=== PATIENT | female | born 1985 | race African-American/Black ===

== ENCOUNTER 2018-07-02 10:11 | Emergency (ER) | payer MEDICAID ==
[~2018-07-02] VITALS: Ht 167.6 cm; Wt 91.0 kg
[~2018-07-02 10:11] MED LIST: LORA-445 PO; LURA20TA PO; RISP2TAB35 PO
[2018-07-02 10:33] VITALS: BP 129/87
--- NOTE | 2018-07-02 10:36 | NUR ---
PT TO LOBBY
--- NOTE | 2018-07-02 10:53 | NUR ---
Pt to amb to 19 from lobby
[2018-07-02 10:57] LABS: HCG UR SG 1.014 (1.003-1.030)
--- NOTE | 2018-07-02 11:30 | NUR ---
Patient/Caregiver given discharge instructions and they have confirmed that they understand the instructions. Patient ambulatory with steady gait.
== END 2018-07-02 11:31 | disposition home or self-care (01) ==
LOC: ED 11:25
DX: Z32.02 Encounter for pregnancy test, result negative (principal)
CPT/HCPCS: 81025; 99283

== ENCOUNTER 2019-04-20 12:22 | Inpatient (IN) | payer MEDICAID ==
[~2019-04-20] VITALS: Ht 167.6 cm; Wt 96.5 kg
[~2019-04-20 12:22] MED LIST changes: +HYDR-3240 PO; +IBUP-1222 PO; +SENN-92 PO
[2019-04-20] MEDS ORDERED: DOCUSATE 100 MG CAPSULE PO PRN (12:30)
[2019-04-20] MEDS ORDERED: POLYETHYLENE GLYCOL 17 GM PACKET PO PRN (12:30)
[2019-04-20] MEDS ORDERED: BISACODYL 10 MG SUPP PR PRN (12:30)
[2019-04-20] MEDS ORDERED: ONDANSETRON ODT 4 MG PO PRN (12:30)
[2019-04-20] MEDS: PLEASE ENTER HEIGHT AND WEIGHT MC SCH ×2 (13:30→21:30)
[2019-04-20 14:01] VITALS: BP 122/79
[2019-04-20] MEDS: LORazepam 1MG TABLET PO PRN ×2 (14:57→22:30)
[2019-04-20 19:59] VITALS: BP 120/84
[2019-04-20] MEDS: HALOPERIDOL 5 MG TABLET PO PRN (22:30)
[2019-04-21 03:23] LABS: MICROSCOPIC AUTO
[2019-04-21 03:30] LABS: CULTURE INDICATED? YES
[2019-04-21 06:22] LABS: BASOPHILS # (AUTO) 0.03 x10^3/uL (0-0.1); BASOPHILS % (AUTO) 0 % (0-1); EOSINOPHILS # (AUTO) 0.12 x10^3/uL (0-0.4); EOSINOPHILS % (AUTO) 2 % (1-7); LYMPHOCYTES # (AUTO) 2.16 x10^3/uL (1-3.4); LYMPHOCYTES % (AUTO) 30 % (22-44); MD NO; MEAN CORPUSCULAR HEMOGLOBIN 28.3 pg (27.0-34.8); MEAN CORPUSCULAR HGB CONC 31.7 g/dL (32.4-35.8); MEAN CORPUSCULAR VOLUME 89.4 fL (80-100); MEAN PLATELET VOLUME 9.4 fL (7.4-10.4); MONOCYTES # (AUTO) 0.65 x10^3/uL (0.2-0.8); MONOCYTES % (AUTO) 9 % (2-9); NEUTROPHILS # (AUTO) 4.28 x10^3/uL (1.8-6.8); NEUTROPHILS % (AUTO) 59 % (42-75); PLATELET COUNT 237 x10^3/uL (130-400); RED BLOOD COUNT 4.25 x10^6/uL (3.82-5.3); RED CELL DISTRIBUTION WIDTH 15.6 % (9.6-15.2)
[2019-04-21 06:28] LABS: AMPHETAMINE SCREEN, URINE Negative (Negative); BARBITURATE SCREEN, URINE Negative (Negative); BENZODIAZEPINE SCREEN, URINE Negative (Negative); CANNABINOID SCREEN, URINE Negative (Negative); COCAINE SCREEN, URINE Negative (Negative); METHADONE SCREEN, URINE Negative (Negative); OPIATE SCREEN, URINE Negative (Negative)
[2019-04-21 06:29] LABS: ANION GAP 4 mmol/L (5-15); CALCIUM 8.4 mg/dL (8.5-10.1); CHLORIDE 111 mmol/L (98-107)
[2019-04-21 06:35] LABS: CHOL/HDL RATIO 2.9; CHOLESTEROL, TOTAL 166 mg/dL (140-239); CREATININE 0.82 mg/dL (0.55-1.02); FREE T4 (FREE THYROXINE) 1.19 ng/dL (0.76-1.46); HDL CHOL % 35 % (28-40); HDL CHOLESTEROL (DIRECT) 58 mg/dL (40-60); LDL CHOLESTEROL,CALCULATED 89 mg/dL (54-169); LDL/HDL RATIO 1.5 (0.5-3.0); TRIGLYCERIDES 96 mg/dL (50-200); VLDL CHOLESTEROL 19 mg/dL (0-25)
[2019-04-21 07:37] VITALS: BP 118/84
[2019-04-21] MEDS: LORazepam 1MG TABLET PO PRN (08:44)
[2019-04-21] MEDS: HALOPERIDOL 5 MG TABLET PO PRN (08:45)
[2019-04-21] MEDS ORDERED: PRAZ1CAP2 PO (11:26)
[2019-04-21] MEDS ORDERED: ARIP10TA33 PO (11:26)
[2019-04-21] MEDS ORDERED: BENZ2TAB6 PO (11:27)
[2019-04-21 19:52] VITALS: BP 124/85
[2019-04-21] MEDS: BENZTROPINE 1 MG TABLET PO SCH (20:13)
[2019-04-21] MEDS: PRAZOSIN 1 MG CAPSULE PO SCH (20:13)
[2019-04-22] MEDS: ACETAMINOPHEN 325 MG TABLET PO PRN ×3 (05:58→20:28)
[2019-04-22 07:17] VITALS: BP 126/84
[2019-04-22] MEDS: BENZTROPINE 1 MG TABLET PO SCH ×2 (08:19→20:28)
[2019-04-22] MEDS: ARIPIPRAZOLE 15 MG TABLET PO SCH (08:19)
[2019-04-22] MEDS ORDERED: ARIPIPRAZOLE 10 MG TABLET PO SCH (09:00)
[2019-04-22] MEDS: HALOPERIDOL 5 MG TABLET PO PRN ×3 (09:07→21:03)
[2019-04-22] MEDS: LORazepam 1MG TABLET PO PRN ×3 (09:07→21:03)
[2019-04-22 19:42] VITALS: BP 136/89
[2019-04-22] MEDS: PRAZOSIN 1 MG CAPSULE PO SCH (20:28)
[2019-04-23] MEDS: ACETAMINOPHEN 325 MG TABLET PO PRN ×2 (05:17→20:05)
[2019-04-23 07:21] VITALS: BP 126/87
[2019-04-23] MEDS: BENZTROPINE 1 MG TABLET PO SCH ×2 (08:11→20:05)
[2019-04-23] MEDS: ARIPIPRAZOLE 15 MG TABLET PO SCH (08:12)
[2019-04-23] MEDS: NICOTINE 21 MG/24 HR PATCH.TD24 TD SCH (08:14)
[2019-04-23] MEDS: LORazepam 1MG TABLET PO PRN ×3 (08:47→21:36)
[2019-04-23] MEDS: HALOPERIDOL 5 MG TABLET PO PRN ×3 (08:47→21:36)
[2019-04-23] MEDS: LURASIDONE 20 MG TABLET PO SCH (10:04)
[2019-04-23] MEDS ORDERED: metroNIDAZOLE 500 MG TABLET PO ONE (13:30)
[2019-04-23 19:08] VITALS: BP 158/83
[2019-04-23] MEDS: CEFDINIR 300 MG CAPSULE PO SCH (20:05)
[2019-04-23] MEDS: PRAZOSIN 1 MG CAPSULE PO SCH (20:05)
[2019-04-24 07:15] VITALS: BP 143/77
[2019-04-24] MEDS: LURASIDONE 20 MG TABLET PO SCH (07:36)
[2019-04-24] MEDS: ARIPIPRAZOLE 10 MG TABLET PO SCH (07:36)
[2019-04-24] MEDS: BENZTROPINE 1 MG TABLET PO SCH ×2 (07:36→19:56)
[2019-04-24] MEDS: NICOTINE 21 MG/24 HR PATCH.TD24 TD SCH (07:36)
[2019-04-24] MEDS: CEFDINIR 300 MG CAPSULE PO SCH ×2 (07:37→19:55)
[2019-04-24] MEDS: HALOPERIDOL 5 MG TABLET PO PRN ×3 (09:13→19:56)
[2019-04-24] MEDS: LORazepam 1MG TABLET PO PRN ×2 (09:13→19:56)
[2019-04-24] MEDS ORDERED: HALOPERIDOL 5 MG TABLET PO ONE (10:00)
[2019-04-24] MEDS ORDERED: LORazepam 1MG TABLET PO ONE (10:00)
[2019-04-24] MEDS ORDERED: HALOPERIDOL 2 MG/ML ORAL SOL PO ONE (10:00)
[2019-04-24] MEDS ORDERED: ARIP10TA33 PO (16:55)
[2019-04-24] MEDS ORDERED: BENZ1TAB61 PO (16:55)
[2019-04-24] MEDS ORDERED: NICO-487 TD (16:55)
[2019-04-24] MEDS ORDERED: LURA20TA PO (16:55)
[2019-04-24] MEDS ORDERED: PRAZ1CAP2 PO (16:55)
[2019-04-24] MEDS ORDERED: CEFD300C37 PO (16:55)
[2019-04-24 19:23] VITALS: BP 142/110
[2019-04-24] MEDS: PRAZOSIN 1 MG CAPSULE PO SCH (19:56)
[2019-04-24 20:32] VITALS: BP 148/91
[2019-04-25] MEDS: LORazepam 1MG TABLET PO PRN (04:10)
[2019-04-25 07:06] VITALS: BP 111/81
[2019-04-25] MEDS ORDERED: ARIPIPRAZOLE 5 MG TABLET ONE (08:48)
[2019-04-25] MEDS: ARIPIPRAZOLE 10 MG TABLET PO SCH (08:49)
[2019-04-25] MEDS: HALOPERIDOL 5 MG TABLET PO PRN (08:50)
[2019-04-25] MEDS: LURASIDONE 20 MG TABLET PO SCH (08:50)
[2019-04-25] MEDS: BENZTROPINE 1 MG TABLET PO SCH (08:50)
[2019-04-25] MEDS: NICOTINE 21 MG/24 HR PATCH.TD24 TD SCH (08:50)
[2019-04-25] MEDS: CEFDINIR 300 MG CAPSULE PO SCH (08:50)
== END 2019-04-25 10:20 | disposition home or self-care (01) | DRG 750 ==
LOC: 3E 12:37
PROVIDERS: ADMIT Psychiatry & Neurology Psychosomatic Medicine; ATTEND Psychiatry & Neurology Psychosomatic Medicine
DX: F25.0 Schizoaffective disorder, bipolar type (principal); Z78.1 Physical restraint status; E66.9 Obesity, unspecified; F29 Unspecified psychosis not due to a substance or known physiological condition; Z68.34 Body mass index [BMI] 34.0-34.9, adult
CPT/HCPCS: 36415; 71045; 80048; 80061; 80307; 81001; 82140; 82607; 84439; 84443; 84703; 85025; 87077; 87086; 87186; 93005

== ENCOUNTER 2019-08-17 11:34 | Inpatient (IN) | payer MEDICAID ==
[~2019-08-17] VITALS: Ht 167.6 cm; Wt 117.0 kg
[~2019-08-17 11:34] MED LIST changes: +ARIP10TA33 PO; +BENZ1TAB61 PO; +BENZ2TAB6 PO; +CEFD300C37 PO; +NICO-487 TD; +PRAZ1CAP2 PO
[2019-08-17] MEDS ORDERED: ONDANSETRON ODT 4 MG PO PRN (12:00)
[2019-08-17] MEDS ORDERED: ACETAMINOPHEN 325 MG TABLET PO PRN (12:00)
[2019-08-17] MEDS ORDERED: DOCUSATE 100 MG CAPSULE PO PRN (12:00)
[2019-08-17] MEDS ORDERED: POLYETHYLENE GLYCOL 17 GM PACKET PO PRN (12:00)
[2019-08-17] MEDS ORDERED: BISACODYL 10 MG SUPP PR PRN (12:00)
[2019-08-17] MEDS ORDERED: LITH300T3 PO (12:06)
[2019-08-17] MEDS ORDERED: PALI234D IM (12:14)
[2019-08-17 14:42] VITALS: BP 137/86
[2019-08-17] MEDS: LITHIUM CARBONATE 300 MG CAPSULE PO SCH ×2 (15:50→19:32)
[2019-08-17] MEDS ORDERED: NICOTINE 14MG/24 HR PATCH.TD24 TD SCH (16:00)
[2019-08-17 16:04] LABS: BASOPHILS # (AUTO) 0.04 x10^3/uL (0-0.1); BASOPHILS % (AUTO) 1 % (0-1); EOSINOPHILS # (AUTO) 0.11 x10^3/uL (0-0.4); EOSINOPHILS % (AUTO) 1 % (1-7); LYMPHOCYTES # (AUTO) 2.94 x10^3/uL (1-3.4); LYMPHOCYTES % (AUTO) 36 % (22-44); MD NO; MEAN CORPUSCULAR HEMOGLOBIN 30.1 pg (27.0-34.8); MEAN CORPUSCULAR HGB CONC 32.7 g/dL (32.4-35.8); MEAN CORPUSCULAR VOLUME 91.9 fL (80-100); MONOCYTES % (AUTO) 10 % (2-9); NEUTROPHILS # (AUTO) 4.26 x10^3/uL (1.8-6.8); NEUTROPHILS % (AUTO) 52 % (42-75); PLATELET COUNT 256 x10^3/uL (130-400); RED BLOOD COUNT 3.77 x10^6/uL (3.82-5.3); RED CELL DISTRIBUTION WIDTH 13.7 % (9.6-15.2)
[2019-08-17 16:07] LABS: ALANINE AMINOTRANSFERASE 41 U/L (12-78); ALBUMIN 3.3 g/dL (3.4-5.0); ANION GAP 3 mmol/L (5-15); CALCIUM 8.7 mg/dL (8.5-10.1); CHLORIDE 110 mmol/L (98-107); CREATININE 0.85 mg/dL (0.55-1.02)
[2019-08-17 16:18] LABS: ALKALINE PHOSPHATASE 78 U/L (45-117); BILIRUBIN,TOTAL 0.1 mg/dL (0.2-1.0); FREE T4 (FREE THYROXINE) 1.14 ng/dL (0.76-1.46); TOTAL PROTEIN 7.8 g/dL (6.4-8.2)
[2019-08-17] MEDS: LORazepam 1MG TABLET PO PRN ×2 (16:42→22:57)
[2019-08-17] MEDS: LURASIDONE 20 MG TABLET PO SCH (17:43)
[2019-08-17 19:09] VITALS: BP 179/113
[2019-08-17] MEDS: PRAZOSIN 1 MG CAPSULE PO SCH (19:31)
[2019-08-17] MEDS: BENZTROPINE 1 MG TABLET PO SCH (19:31)
[2019-08-17 19:42] LABS: MICROSCOPIC NOT IND
[2019-08-17 19:53] LABS: CULTURE INDICATED? NO
[2019-08-17] MEDS: HALOPERIDOL 5 MG TABLET PO PRN (22:48)
[2019-08-18 01:30] VITALS: BP 135/88
[2019-08-18] MEDS: LORazepam 1MG TABLET PO PRN ×2 (05:41→15:45)
[2019-08-18 07:50] VITALS: BP 148/60
[2019-08-18] MEDS: ARIPIPRAZOLE 10 MG TABLET PO SCH (08:53)
[2019-08-18] MEDS: BENZTROPINE 1 MG TABLET PO SCH ×2 (08:54→20:32)
[2019-08-18] MEDS: LITHIUM CARBONATE 300 MG CAPSULE PO SCH ×3 (08:54→20:32)
[2019-08-18] MEDS: HALOPERIDOL 5 MG TABLET PO PRN ×2 (09:52→15:45)
[2019-08-18] MEDS ORDERED: NICOTINE 21 MG/24 HR PATCH.TD24 TD ONE (14:00)
[2019-08-18] MEDS: LURASIDONE 20 MG TABLET PO SCH (18:28)
[2019-08-18 19:15] VITALS: BP 120/80
[2019-08-18] MEDS: PRAZOSIN 1 MG CAPSULE PO SCH (20:32)
[2019-08-19] MEDS: HALOPERIDOL 5 MG TABLET PO PRN ×3 (01:01→20:30)
[2019-08-19] MEDS: LORazepam 1MG TABLET PO PRN ×3 (01:01→22:58)
[2019-08-19] MEDS ORDERED: ZIPRASIDONE 20 MG INJ IM ONE ×2 (04:04→04:30)
[2019-08-19 07:31] VITALS: BP 141/89
[2019-08-19] MEDS: ARIPIPRAZOLE 10 MG TABLET PO SCH (08:37)
[2019-08-19] MEDS: LITHIUM CARBONATE 300 MG CAPSULE PO SCH ×3 (08:38→20:28)
[2019-08-19] MEDS: BENZTROPINE 1 MG TABLET PO SCH ×2 (08:38→20:28)
[2019-08-19] MEDS ORDERED: LORazepam 1MG TABLET PO ONE (10:30)
[2019-08-19] MEDS ORDERED: HALOPERIDOL 5 MG TABLET PO ONE (10:30)
[2019-08-19] MEDS: DIPHENHYDRAMINE 50 MG CAPSULE PO PRN ×2 (10:51→20:29)
[2019-08-19] MEDS: LURASIDONE 20 MG TABLET PO SCH (18:00)
[2019-08-19] MEDS: PRAZOSIN 1 MG CAPSULE PO SCH (20:29)
[2019-08-19] MEDS ORDERED: LORazepam 0.5MG TABLET ONE (23:25)
[2019-08-19] MEDS ORDERED: LORazepam 0.5MG TABLET PO ONE (23:30)
[2019-08-20] MEDS: HALOPERIDOL 5 MG TABLET PO PRN (02:12)
[2019-08-20 07:21] VITALS: BP 125/84
[2019-08-23] MEDS ORDERED: PALIPERIDONE PALMITATE 234 MG/1.5 ML IM ONE (09:00)
== END 2019-08-20 08:20 | disposition home or self-care (01) | DRG 750 ==
LOC: 3E 13:55
PROVIDERS: ADMIT Psychiatry & Neurology Psychosomatic Medicine; ATTEND Psychiatry & Neurology Psychosomatic Medicine
DX: F25.0 Schizoaffective disorder, bipolar type (principal); Z68.41 Body mass index [BMI] 40.0-44.9, adult; F23 Brief psychotic disorder; F15.10 Other stimulant abuse, uncomplicated; F32.9 Major depressive disorder, single episode, unspecified; F41.9 Anxiety disorder, unspecified; F10.10 Alcohol abuse, uncomplicated; F17.200 Nicotine dependence, unspecified, uncomplicated; E66.9 Obesity, unspecified; Z91.19 Patient's noncompliance with other medical treatment and regimen; Z79.899 Other long term (current) drug therapy; Z83.3 Family history of diabetes mellitus; Z83.6 Family history of other diseases of the respiratory system
CPT/HCPCS: 36415; 80053; 81003; 82140; 84439; 84443; 85025; 93005; J3486

== ENCOUNTER 2020-01-28 07:52 | Emergency (ER) | payer MEDICAID ==
[~2020-01-28] VITALS: Ht 167.6 cm; Wt 117.0 kg
[~2020-01-28 07:52] MED LIST changes: +LITH300T3 PO; +PALI234D IM
[2020-01-28 07:54] VITALS: BP 100/65
[2020-01-28] MEDS ORDERED: NEOSPORIN OINT. PKT 1 PACKET ONE (08:39)
--- NOTE | 2020-01-28 09:23 | NUR ---
Patient given discharge instructions and they have confirmed that they understand the instructions. Patient ambulatory with steady gait.
== END 2020-01-28 09:24 | disposition home or self-care (01) ==
LOC: ED 08:12
DX: S93.402A Sprain of unspecified ligament of left ankle, initial encounter (principal); S90.822A Blister (nonthermal), left foot, initial encounter; X50.1XXA Overexertion from prolonged static or awkward postures, initial encounter; Y93.89 Activity, other specified; Y92.488 Other paved roadways as the place of occurrence of the external cause; Y99.8 Other external cause status
CPT/HCPCS: 99283

== ENCOUNTER 2020-06-10 21:43 | Emergency (ER) | payer MEDICAID ==
[~2020-06-10] VITALS: Ht 167.6 cm; Wt 100.0 kg
[~2020-06-10 21:43] MED LIST changes: -NICO-487 TD; +NICO-587 TD
[2020-06-10] MEDS ORDERED: ZIPRASIDONE 20 MG INJ IM ONE ×2 (21:54→22:00)
[2020-06-10 22:16] LABS: BASOPHILS % (AUTO) 1 % (0-1); EOSINOPHILS % (AUTO) 0 % (1-7); LYMPHOCYTES % (AUTO) 29 % (22-44); MEAN CORPUSCULAR HEMOGLOBIN 28.9 pg (27.0-34.8); MEAN CORPUSCULAR HGB CONC 33.5 g/dL (32.4-35.8); MEAN PLATELET VOLUME 8.8 fL (7.4-10.4); MONOCYTES % (AUTO) 8 % (2-9); NEUTROPHILS % (AUTO) 63 % (42-75); PLATELET COUNT 343 x10^3/uL (130-400); RED BLOOD COUNT 3.92 x10^6/uL (3.82-5.3); RED CELL DISTRIBUTION WIDTH 13.8 % (9.6-15.2)
[2020-06-10 22:19] LABS: MD NO
--- NOTE | 2020-06-10 22:19 | NUR ---
BIBA AND [employer], LEGAL HOLD INITIATED BY RPArianna. PER REPORT [employer] RECIEVED SEVEN 911 CALLS ABOUT A NAKED LADY RUNNING AROUND THE STREETS NEAR PTS HOME. POLICE FOUND PT NAKED IN A LARGE TRASH CAN. A NEIGHBOR THROWING CLOTHES AWAY WAS PASSING BY AND DONATED BAG OF CLOTHING TO PT TO WEAR. PER EMS PT HAS HX OF SCHIZOPRENIA. PT IS DENYING HEARING VOICES OR SEEING THINGS AND IS ALSO DENYING SI THOUGHTS. UPON ARRIVAL TO HOSPITAL PT REFUSES TO SIT OR LAY DOWN IN GURNEY OR WEAR HOSPITAL GOWN. PT HAS STEADY AMBULATION AND IS REDIRECTABLE FOR A FEW SECONDS BEFORE PT LOOSES FOCUS AND BECOMES HYPERFOCUSED ON OTHER THINGS SUCH THE TV OR A STAFF MEMBER IN THE ROOM AND WILL GET OUT OF BED AND WALK AROUND ROOM GRABBING THE CURTIAN TO COVER HERSELF. PT WILL LET RN DRESS HER WITH GOWN BUT THEN IMMEDIATELY REMOVES GOWN. PT STATES SHE IS AND HAS 7 CHILDREN BUT IS UNSURE HOW FAR ALONG SHE IS AND THAT HER IS IN [facility]. PT HAS WIDE, TRACKING EYES. ADMITS TO USING METH AND HAS HOARSE SOUNDING VOICE AND CLEAR SPEECH. PT GIVEN 20 MG GEODON WITH NO CHANGE IN BEHAVIOR. SECURITY CALLED AND PT PLACED IN 4 POINT LEATHER RESTRAINTS. GAL COBIAN AWARE. SITTER AT BEDSIDE.
[2020-06-10 22:28] LABS: ALBUMIN 3.4 g/dL (3.4-5.0); ANION GAP 9 mmol/L (5-15); CALCIUM 8.5 mg/dL (8.5-10.1); CHLORIDE 105 mmol/L (98-107); SALICYLATE LEVEL 2.5 mg/dL (2.8-20.0)
[2020-06-10 22:39] LABS: ALANINE AMINOTRANSFERASE 38 U/L (12-78); ALKALINE PHOSPHATASE 88 U/L (45-117); BILIRUBIN,TOTAL 0.5 mg/dL (0.2-1.0); CREATININE 0.86 mg/dL (0.55-1.02); TOTAL PROTEIN 7.5 g/dL (6.4-8.2)
--- NOTE | 2020-06-10 23:15 | NUR ---
PT GOES BY NICKNAME OF "STAR". PT IS ORIENTED TO SELF AND PLACE. KNOWS SHE WAS BROUGHT IN BY POLICE AND IS AT A HOSPITAL.
[2020-06-11] MEDS ORDERED: DIPHENHYDRAMINE 50 MG/ML, 1ML ONE (00:11)
[2020-06-11] MEDS ORDERED: LORazepam 2 MG/ML, 1ML ONE (00:12)
--- NOTE | 2020-06-11 00:22 | NUR ---
PT AWAKE AND YELLING AT STAFF. PT NOW HAS RUDE DEMEANER AND IS AGGITATED. ERP DR DESAI AWARE. PRN ORDERS PLACED
--- NOTE | 2020-06-11 00:22 | NUR ---
UA SENT TO LAB
--- NOTE | 2020-06-11 00:29 | NUR ---
pt yelling "I have to s" however is refusing bed stanley and other alternatives. pt yelling in room
[2020-06-11] MEDS ORDERED: DIPHENHYDRAMINE 50 MG/ML, 1ML IM ONE (00:30)
[2020-06-11] MEDS ORDERED: LORazepam 2 MG/ML, 1ML IM ONE ×2 (00:30→03:30)
[2020-06-11 00:42] LABS: MICROSCOPIC AUTO
--- NOTE | 2020-06-11 00:46 | NUR ---
Break RN: patient lying in gurney with eyes closed. Patient remains in hard restraints for safety. Room secured, belongings locked in cabinet, sitter outside.
[2020-06-11 00:52] LABS: AMPHETAMINE SCREEN, URINE Positive (Negative); BARBITURATE SCREEN, URINE Negative (Negative); BENZODIAZEPINE SCREEN, URINE Positive (Negative); CANNABINOID SCREEN, URINE Negative (Negative); COCAINE SCREEN, URINE Negative (Negative); METHADONE SCREEN, URINE Negative (Negative); OPIATE SCREEN, URINE Negative (Negative)
--- NOTE | 2020-06-11 00:56 | NUR ---
Break RN: patient in [facility], yelling at staff. Room secured, belongings in locked cabinet, sitter outside. Restraints remain in place for patient/staff safety.
--- NOTE | 2020-06-11 01:46 | NUR ---
Note larsone in EDM - 06/11/20 at 0149 by [email or web address] REPORT GIVEN TO TUNG LAW. PT MOVED TO ROOM 01. IN 4-POINT LOCKED RESTRAINTS. + CMS. PT AWAKE AND YELLING, SLIGHTLY DROWSY. RESP EVEN AND UNLABORED. ASKING FOR FOOD. GIVEN CRACKERS AND WATER.
--- NOTE | 2020-06-11 01:49 | NUR ---
REPORT GIVEN TO TUNG LAW. PT MOVED TO ROOM 01. IN 4-POINT LOCKED RESTRAINTS. + CMS. PT AWAKE AND YELLING, SLIGHTLY DROWSY. RESP EVEN AND UNLABORED. ASKING FOR FOOD. GIVEN CRACKERS AND WATER.
--- NOTE | 2020-06-11 01:50 | NUR ---
Report from ANI Quigley. Assumed care. Pt in 4pt restraints, sitter at bedside. Pt sleeping. Equal chest rise and fall noted.
--- NOTE | 2020-06-11 02:09 | NUR ---
Restraints removed. Pt cooperating well. Pt ambulated to bathroom. Pt back in bed, resting eyes closed. Equal chest rise and fall, breathing non-labored.
--- NOTE | 2020-06-11 02:20 | NUR ---
Dimmed lights and provided crackers per pt. request.
--- NOTE | 2020-06-11 02:25 | NUR ---
Provided pt sandwich per pt. request. Pt calm and cooperative.
--- NOTE | 2020-06-11 02:36 | NUR ---
Packet faxed to Christi JAMISON, [facility], [facility], [facility].
--- NOTE | 2020-06-11 02:45 | NUR ---
Report to ANI SNOW.
--- NOTE | 2020-06-11 02:50 | NUR ---
Report received from ANI Amador. This RN to assume care. Patient resting in gurney, eyes closed, respirations even and unlabored. Patient just finished eating a sandwich. Room secure, belongings locked in cabinet, sitter outside.
--- NOTE | 2020-06-11 03:15 | NUR ---
Patient resting in gurney, eyes closed, respirations even and unlabored. Room secure, belongings locked in cabinet, sitter outside.
--- NOTE | 2020-06-11 03:17 | NUR ---
Christi denies due to insurance.
[2020-06-11] MEDS ORDERED: ZIPRASIDONE 20 MG INJ IM ONE (03:30)
--- NOTE | 2020-06-11 03:30 | NUR ---
Requested PRN meds for agitation due to patient's previous behavior.
--- NOTE | 2020-06-11 04:35 | NUR ---
Patient resting in gurney, eyes closed, respirations even and unlabored. Room secure, belongings locked in cabinet, sitter outside.
--- NOTE | 2020-06-11 05:20 | NUR ---
Patient resting in gurney, eyes closed, respirations even and unlabored. Room secure, belongings locked in cabinet, sitter outside.
--- NOTE | 2020-06-11 06:09 | NUR ---
Meal tray ordered.
--- NOTE | 2020-06-11 06:11 | NUR ---
Patient resting in gurney, eyes closed, respirations even and unlabored. Room secure, belongings locked in cabinet, sitter outside.
--- NOTE | 2020-06-11 06:57 | NUR ---
RECEIVED REPORT FROM NELY. PT CALMLY SLEEPING ON GURNEY, NAD WITH EQUAL CHEST RISE/FALL, NO NEEDS AT THIS TIME, PT REMAINS IN SAFE ENVIRONMENT, SITTER IN FULL VIEW.
--- NOTE | 2020-06-11 06:58 | NUR ---
Report to ANI Blue. Patient care transferred.
--- NOTE | 2020-06-11 08:01 | NUR ---
PT LAYING ON GURNEY AWAKE & CALM, NAD, NO NEEDS AT THIS TIME, PT REMAINS IN SAFE ENVIRONMENT, SITTER IN FULL VIEW.
[2020-06-11] MEDS ORDERED: DIPHENHYDRAMINE 25 MG CAPSULE ONE (08:27)
[2020-06-11] MEDS ORDERED: LORazepam 1MG TABLET ONE (08:27)
[2020-06-11] MEDS ORDERED: DIPHENHYDRAMINE 50 MG CAPSULE ONE (08:34)
[2020-06-11 08:45] VITALS: BP 124/76
[2020-06-11] MEDS ORDERED: LORazepam 1MG TABLET PO ONE (09:00)
[2020-06-11] MEDS ORDERED: DIPHENHYDRAMINE 50 MG CAPSULE PO ONE (09:00)
--- NOTE | 2020-06-11 09:02 | NUR ---
PT BECAME RESTLESS, KEEPS COMING OUT OF ROOM TRYING TO WANDER NEEDING FREQUENT REDIRECTION BUT COOPERATIVE- ERP AWARE, PT MEDICATED PER EMAR, NAD, COMFORT MEASURES PROVIDED INCL BREAKFAST TRAY GIVEN, PT REMAINS IN SAFE ENVIRONMENT, SITTER IN FULL VIEW.
--- NOTE | 2020-06-11 10:00 | NUR ---
PT REMAINS RESTLESS DESPITE MEDICATION, KEEPS COMING OUT OF ROOM TRYING TO WANDER NEEDING FREQUENT REDIRECTION, MOSTLY COOPERATIVE, NAD, COMFORT MEASURES PROVIDED, PT REMAINS IN SAFE ENVIRONMENT, SITTER IN FULL VIEW.
--- NOTE | 2020-06-11 11:03 | NUR ---
PT RESTLESS AT TIMES DESPITE MEDICATION, KEEPS COMING OUT OF ROOM TRYING TO WANDER NEEDING FREQUENT REDIRECTION BUT COOPERATIVE, NAD, COMFORT MEASURES PROVIDED, PT REMAINS IN SAFE ENVIRONMENT, SITTER IN FULL VIEW. Addendum: 06/11/20 at 1112 by YING PT RESTLESS AT TIMES DESPITE MEDICATION, KEEPS COMING OUT OF ROOM TRYING TO WANDER NEEDING FREQUENT REDIRECTION BUT COOPERATIVE, NAD, COMFORT MEASURES PROVIDED, PT REMAINS IN SAFE ENVIRONMENT, SITTER IN FULL VIEW. AWAITING [facility] TRANSPORT TO [facility].
--- NOTE | 2020-06-11 11:26 | NUR ---
EMS given pt discharge instructions and they have confirmed that they understand the instructions. Patient ambulatory with steady gait.
== END 2020-06-11 11:28 ==
LOC: ED 22:27
DX: F15.150 Other stimulant abuse with stimulant-induced psychotic disorder with delusions (principal); F22 Delusional disorders; Z91.14 Patient's other noncompliance with medication regimen; R00.0 Tachycardia, unspecified; Z72.9 Problem related to lifestyle, unspecified; F17.210 Nicotine dependence, cigarettes, uncomplicated
CPT/HCPCS: 36415; 80053; 80299; 80307; 80320; 80329; 81001; 84443; 84703; 85025; 96372; 99285; 99406; J1200; J2060; J3486; G0480

== ENCOUNTER 2020-08-08 20:44 | Emergency (ER) | payer MEDICAID ==
[~2020-08-08] VITALS: Ht 162.6 cm; Wt 80.0 kg
[~2020-08-08 20:44] MED LIST changes: +HYDR-1067 PO; -HYDR-3240 PO
--- NOTE | 2020-08-08 20:59 | NUR ---
PT BIB EMS AFTER BEING FOUND BY [employer] ACTING ERRATIC AND UNABLE TO MAINTAIN COHERENT THOUGHT PROCESS, RUSHED SPEECH NOTED, PT IS EXTREMELY RESTLESS, SWINGING ARMS AND LEGS NON STOP, UNABLE TO HOLD STILL. PT STATING "I NEED MILK AND TO GET UP AND I WANT A QUESTION TO YOU.. CAN YOU ANSWER?" "I NEED TO PEE WHEN I RELAX BUT YOU NEED MY ADDRESS FIRST." PT ADMITS TO USING METH TODAY. GIVEN 5 MG IM VERSED TEZ. WCTM. PLACED ON [facility], ROOM SECURED, SITTER IN LINE OF SIGHT.
[2020-08-08] MEDS: HALOPERIDOL 5 MG/ML IV ONE ×2 (21:00→21:14)
[2020-08-08] MEDS ORDERED: HALOPERIDOL 5 MG/ML ONE (21:10)
--- NOTE | 2020-08-08 21:24 | NUR ---
PT PLACED ON ECG MONITORING AT THIS TIME. PROVIDED WATER FOR COMFORT, SITTER IN LINE OF SIGHT, PT MEDICATED PER AUG FOR AGGITATION, NAD, WCTM.
[2020-08-08] MEDS ORDERED: HALOPERIDOL 5 MG/ML IM ONE (21:30)
--- NOTE | 2020-08-08 22:17 | NUR ---
ASSUMED CARE OF PT FROM ANI NEWBERRY. PT RESTING IN GURNEY RESTRAINED, MONITORING IN PLACE, ZITA AT THIS TIME, WCEUGENIO.
--- NOTE | 2020-08-08 22:17 | NUR ---
bedside report to Renita LWA, pt care transferred at this time. pt room changed from 40 to 3 at this time, pt awakened and irritated upon transfer of rooms, monitoring in place, pt provided water, sitter in line of sight.
[2020-08-08] MEDS ORDERED: LORazepam 1MG TABLET ONE (23:14)
--- NOTE | 2020-08-08 23:29 | NUR ---
SECURITY AT BEDSIDE TO UNRESTRAIN ONE LIMB. PT PROVIDED FOOD AND WATER, MEDICATED PER AMBROSIO CARRANZA. SITTER AT BEDSIDE FOR SAFETY, ROOM SECURED.
[2020-08-08] MEDS ORDERED: LORazepam 1MG TABLET PO ONE (23:30)
--- NOTE | 2020-08-08 23:48 | NUR ---
SECURITY AT BEDSIDE TO TAKE OFF RESTRAINT FROM LEFT LOWER LIMB. PT STILL HAS RIGHT LOWER EXTREMITY AND LEFT UPPER EXTREMITY RESTRAINED DUE TO PT BEING AGITATED WHEN AWAKE. PT SLEEPING INTERMITTENTLY. SITTER AT BEDSIDE WITH DIRECT LINE OF SIGHT. [facility].
--- NOTE | 2020-08-09 00:15 | NUR ---
SECURITY AT BEDSIDE TO TAKE OFF ALL RESTRAINTS. PT CALM AND COOPERATIVE AT THIS TIME. SITTER AT DOORWAY OF ROOM FOR SAFETY. PT PROVIDED FOOD AND WATER AND WARM BLANKET. PT EDUCATED ON IMPORTANCE OF CALLING BEFORE TRYING TO GET OUT OF BED. PT RESTING IN GURNEY WITH EYES CLOSED, MONITORING IN PLACE, PER PT NO OTHER NEEDS, NADN AT THIS TIME, WCTM.
--- NOTE | 2020-08-09 01:27 | NUR ---
PT PROVIDED FOOD AND WATER AT THIS TIME. SITTER AT BEDSIDE, ZITA AT THIS TIME, AMBROSIO.
--- NOTE | 2020-08-09 02:15 | NUR ---
BEDSIDE REPORT FROM PERFECTO LAW, PT CARE TRANSFERRED AT THIS TIME. PT NAD, RESTING ON GURNEY, EYES CLOSED, EVEN AND UNLABORED RESPIRATIONS. WCTM.
--- NOTE | 2020-08-09 03:09 | NUR ---
PT NAD, RESTING ON GURNEY, EYES CLOSED, EVEN AND UNLABORED RESPIRATIONS, BED IN LOWEST, RAILS ENGAGED, CALL LIGHT ON LAP. WCTM.
--- NOTE | 2020-08-09 04:37 | NUR ---
PT NAD, RESTING ON GURNEY, EYES CLOSED, EVEN AND UNLABORED RESPIRATIONS, BED IN LOWEST, RAILS ENGAGED, CALL LIGHT ON LAP. WCTM.
[2020-08-09 05:30] VITALS: BP 118/64
--- NOTE | 2020-08-09 05:30 | NUR ---
Patient given discharge instructions and they have confirmed that they understand the instructions. Patient ambulatory with steady gait. NAD, DENIES ADDITIONAL QUESTIONS OR NEEDS, PROVIDED TAXI VOUCHER,SNACKS AND NEW PANTS. NO PERSONAL BELONGINGS LEFT IN ROOM AFTER DC.
== END 2020-08-09 05:32 | disposition home or self-care (01) ==
LOC: ED 21:12
DX: G92 Toxic encephalopathy (principal); F15.159 Other stimulant abuse with stimulant-induced psychotic disorder, unspecified; R45.1 Restlessness and agitation
CPT/HCPCS: 96372; 99285; J1630

== ENCOUNTER 2020-10-02 14:15 | Emergency (ER) | payer MEDICAID ==
[~2020-10-02] VITALS: Ht 170.2 cm; Wt 90.0 kg
[~2020-10-02 14:15] MED LIST changes: -HYDR-1067 PO; +HYDR-2214 PO
[2020-10-02 14:19] VITALS: BP 130/81
--- NOTE | 2020-10-02 14:32 | NUR ---
BIB BY FRANCES FROM BUS STOP PATIENT FLAGGING DOWN TRAFFIC ASKING FOR TAMPON. WITH ASSESSMENT PATIENT HYPERVERBAL/ANXIOUS. ADMITS TO METH USE TODAY RECENTLY DISCHARGED FROM [facility] FOR SCHIZOPHRENIA AFTER TRIAGE-PATIENT PROVIDED WITH FEMININE PRODUCTS- SHE WALKED TO RESTROOM AND UTILIZED PRODUCTS APPROPRIATELY
--- NOTE | 2020-10-02 14:40 | NUR ---
PATIENT ASKING TO LEAVE. ERP NOT YET TO EVAL. PATIENT INSISTENT ON LEAVING AND COHERENT TO CONSEQUENCES OF LEAVING PRE MD EVAL. PATIENT WOULD NOT WAIT FOR D/C PAPERWORK BEFORE SHE WALKED OUT
== END 2020-10-02 14:43 | disposition home or self-care (01) ==
LOC: ED 14:40
DX: Z53.21 Procedure and treatment not carried out due to patient leaving prior to being seen by health care provider (principal)

== ENCOUNTER 2020-10-02 19:07 | Emergency (ER) | payer MEDICAID ==
[~2020-10-02] VITALS: Ht 162.6 cm; Wt 100.0 kg
[2020-10-02 19:15] VITALS: BP 168/90
--- NOTE | 2020-10-02 19:26 | NUR ---
PT EXTREMELY HYPER AND WON'T STAY IN ROOM. CONTINUES TO COME OUT AND HARASS PTS IN ADJACENT ROOMS. PT PROVIDED RESTROOM AND ASSITANCE, BUT WOULD NOT COMPLY AND STAY IN ROOM OR ALLOW TREATMENT. PT STOOD UP AND STATED SHE IS LEAVING AND RAN OUT OF THE HOSPITAL. PT IS NOT ON A HOLD OF ANY KIND NOR HAS SHE BEEN SEEN BY STAFF. PT BROUGHT IN BY EMS, AND PER RECORDS, PT WAS SEEN HERE FOR SAME THING AND ALSO RAN OUT 2 HOURS AGO, IN SAME SITUATION. DOOR FITTER AWARE AND SO IS .
== END 2020-10-02 19:29 | disposition left against medical advice (07) ==
LOC: ED 19:20
DX: Z53.21 Procedure and treatment not carried out due to patient leaving prior to being seen by health care provider (principal)

== ENCOUNTER 2020-10-02 21:25 | Emergency (ER) | payer MEDICAID ==
--- NOTE | 2020-10-02 21:50 | NUR ---
PATIENT BROUGHT IN BY [facility] FOR THE 2ND TIME. RAN OUT FROM [facility]. RIVERA.
== END 2020-10-02 21:53 | disposition left against medical advice (07) ==
LOC: ED 21:47
DX: Z53.21 Procedure and treatment not carried out due to patient leaving prior to being seen by health care provider (principal)

== ENCOUNTER 2020-10-02 23:58 | Observation (INO) | payer MEDICAID ==
[~2020-10-02] VITALS: Ht 162.6 cm; Wt 109.0 kg
[2020-10-03] MEDS ORDERED: ZIPRASIDONE 20 MG INJ IM ONE ×9 (00:30→13:30)
--- NOTE | 2020-10-03 00:49 | NUR ---
PT BIB EMS, WAS WANDERING AROUND WITHOUT PANTS. PT WAS VISIBLY AGGITATED IN ER, YELLING OUT "YOU GOTTA TELL THEM THE MONEY IS IN THE ENVELOPE AND IM A FAG, IM AUGUSTIN, I NEED YOUR HELP" PT HAS A FLIGHT OF IDEAS AND RUSHED SPEECH. ADMITS TO RECENT METH USE. PT GIVEN NEW PANTS, WALKED TO RESTROOM WITH A SMOOTH AND STEADY GAIT, MEDICATED PER AUG. VSS. WCTM.
[2020-10-03] MEDS ORDERED: MIDAZOLAM 1 MG/ML, 5ML IM ONE ×2 (01:00→01:30)
[2020-10-03] MEDS ORDERED: MIDAZOLAM 1 MG/ML, 2ML IM ONE (01:00)
[2020-10-03] MEDS ORDERED: MIDAZOLAM 1 MG/ML, 2ML ONE ×2 (01:01→01:33)
[2020-10-03 01:03] LABS: BASOPHILS % (AUTO) 1 % (0-1); EOSINOPHILS % (AUTO) 0 % (1-7); LYMPHOCYTES % (AUTO) 18 % (22-44); MEAN CORPUSCULAR HEMOGLOBIN 28.3 pg (27.0-34.8); MEAN CORPUSCULAR HGB CONC 33.2 g/dL (32.4-35.8); MEAN PLATELET VOLUME 8.7 fL (7.4-10.4); MONOCYTES % (AUTO) 8 % (2-9); NEUTROPHILS % (AUTO) 73 % (42-75); PLATELET COUNT 308 x10^3/uL (130-400); RED BLOOD COUNT 3.93 x10^6/uL (3.82-5.3); RED CELL DISTRIBUTION WIDTH 14.5 % (9.6-15.2)
--- NOTE | 2020-10-03 01:11 | NUR ---
PT MEDICATED PER MAR, PT APPEARS TO BE SLIGHTLY SETTLING DOWN. PT FE, RN AT TO KEEP PT COMFORTABLE AND IN GURNEY. UNABLE TO MAINTAIN CONTINUOUS MONITORING DUE TO PT REPEATEDLY RIPPING OFF MONITORING. WILL APPLY WHEN PT IS LESS AGGITATED. VSS BEFORE AND AFTER MEDICATION ADMINISTRATION. PT YELLING "I HAVE A PHOBIA OF NEEDLES, I DONT LIKE NEEDLES, YOU TOLD ME DAMN THAT IT WAS FINE, TELL THEM ABOUT THE MONEY." WCTM.
[2020-10-03 01:12] LABS: ALANINE AMINOTRANSFERASE 23 U/L (12-78); ALBUMIN 3.2 g/dL (3.4-5.0); ANION GAP 8 mmol/L (5-15); CALCIUM 8.8 mg/dL (8.5-10.1); CHLORIDE 106 mmol/L (98-107); CREATININE 0.64 mg/dL (0.55-1.02)
[2020-10-03 01:14] LABS: ALKALINE PHOSPHATASE 65 U/L (45-117); BILIRUBIN,TOTAL 0.3 mg/dL (0.2-1.0); SALICYLATE LEVEL < 1.7 mg/dL (2.8-20.0); TOTAL PROTEIN 8.3 g/dL (6.4-8.2)
--- NOTE | 2020-10-03 01:18 | NUR ---
PT NOW ON VS MONITORING, SPO2/BP/ECG MONITORING IN PLACE, VSS, WET WASH CLOTH IN PLACE ON EYES TO HELP CALM PT. BEDSIDE REPORT TO LILIBETH RN, PT CARE TRANSFERRED AT THIS TIME. LILIBETH AWARE OF PT CURRENT POC, STATE OF MIND AND PREVIOUS MEDICATIONS.
[2020-10-03] MEDS ORDERED: DIPHENHYDRAMINE 50 MG/ML, 1ML IM ONE (01:30)
[2020-10-03] MEDS ORDERED: DIPHENHYDRAMINE 50 MG/ML, 1ML ONE (01:33)
--- NOTE | 2020-10-03 02:29 | NUR ---
BREAK RN: PT GETTING OUT OF BED. PT REDIRECTED AND GIVEN A PILLOW AND WARM BALNKETS. SITTER IN VIEW OF PT.
--- NOTE | 2020-10-03 02:41 | NUR ---
BREAK RN: PT OUT OF BED AGAIN. WALKED TO BATHROOM WITH TECH AND GIVEN WATERAND CRACKERS. SITTER IN VIEW OF PT.
--- NOTE | 2020-10-03 03:42 | NUR ---
PT VERBALY THREATING STAFF AND WILL NOT STAY IN PT BED, PT UNSTEADY ON FEET AND STUMBLING AROUND ROOM. PT MEDICATED PER MAR. PT PLACED IN 2 POINT RESTRAINTS FOR PT AND STAFF SAFETY
--- NOTE | 2020-10-03 05:11 | NUR ---
HOSPITAL BED ORDERED FOR PT.
--- NOTE | 2020-10-03 05:37 | NUR ---
FAXED PACKET TO [facility]
--- NOTE | 2020-10-03 05:51 | NUR ---
PT MOVED TO ROOM 2, PT STILL MANIC AND DIFFICULT TO CALM DOWN. PT REMAINS ON 2 POINT RESTRAINTS PER MD ORDER. PT PLACED IN HOSPITAL BED AND CURRENTLY ON A LEGAL HOLD.
[2020-10-03] MEDS ORDERED: HALOPERIDOL 5 MG/ML ONE (06:04)
--- NOTE | 2020-10-03 06:09 | NUR ---
PT REMAINS MANIC AND NON STOP RAMBLING WORDS. PT REMAINS ON 2 POINT LEATHER RESTRAINTS, AND BEING MONITORED Q15MIN. PT HAS BEEN PROVIDED RESTROOM, AND WAS ABLE TO AMBULATE TO THE RESTROOM AND URINATE AND DEFICATE. PTS BELONGINGS ARE NOW IN THE LOCKER MARKED ROOM 2, AND LABELED. PT REMAINS ACTIVE AND DIFFICULT TO SETTLE. MD AWARE AND UPDATED AND ASSESED PT. PT MEDICATED PER EMAR ORDER, VIA IM INJECTION. SEE EMAR. SITTER REMAINS OUTSIDE OF ROOM, WITH EYES ON PT.
[2020-10-03] MEDS ORDERED: HALOPERIDOL 5 MG/ML IM PRN (06:30)
--- NOTE | 2020-10-03 06:47 | NUR ---
REPORT AND CARE TO SUBHASH LAW.
--- NOTE | 2020-10-03 06:59 | NUR ---
Pt in R arm and L leg hard point restraints. Pt provided with second gown as she was exposing herself because she had twisted around to be laying on stomach. Pt talking non stop and told this RN to "shut up" when attempting to educate. Pt in view of sitter. 2 of 2 belongings bag verified to be in psych locker.
--- NOTE | 2020-10-03 09:00 | NUR ---
Late entry: Pt sleeping. Restraints d/c'd. Pt ambulatory to bathroom, provided UA. Pt back to bed, given food, pt back to sleep in view of sitter.
--- NOTE | 2020-10-03 09:30 | NUR ---
Spoke w/Dr Rob regarding this pt, he declined admitting her to this unit and suggested that she be sent to [facility]
[2020-10-03 10:13] LABS: AMPHETAMINE SCREEN, URINE Positive (Negative); BARBITURATE SCREEN, URINE Negative (Negative); BENZODIAZEPINE SCREEN, URINE Positive (Negative); CANNABINOID SCREEN, URINE Negative (Negative); COCAINE SCREEN, URINE Negative (Negative); METHADONE SCREEN, URINE Negative (Negative); OPIATE SCREEN, URINE Negative (Negative)
--- NOTE | 2020-10-03 10:54 | NUR ---
Pt provided with sveta, back to sleep.
--- NOTE | 2020-10-03 11:42 | NUR ---
Pt up to shower, in view of sitter. Full linen change provided.
[2020-10-03] MEDS ORDERED: LORazepam 1MG TABLET ONE ×2 (11:58→20:38)
[2020-10-03] MEDS ORDERED: LORazepam 1MG TABLET PO ONE ×2 (12:00→21:00)
--- NOTE | 2020-10-03 12:24 | NUR ---
TASK RN: PT OUT OF ROOM RUNNING CIRCLES AROUND UNIT, UNABLE TO BE VERBALLY REDIRECTED. SECURITY ON SCENE FOR ASSISTANCE. MEDS ORDERED BY .
--- NOTE | 2020-10-03 12:29 | NUR ---
TASK RN: BACKUP SECURITY ARRIVED W/ RESTRAINTS. PT ABLE TO BE GUIDED INTO T1. SECURITY TO RESTRAIN PT IN T1. ARIELLA INSTRUCTIONAL PARAPROFESSIONAL REMOVING HOSPITAL BED FROM PTS ESTABLISHED ROOM. HELENE RN AT BEDSIDE TO MEDICATE.
[2020-10-03] MEDS ORDERED: DROPERIDOL 2.5MG/ML, 2ML IM ONE (12:30)
--- NOTE | 2020-10-03 12:33 | NUR ---
PT PLACED IN 2 POINT RESTRAINTS B SECURITY, PT STILL COMBATIVE AND VERBALLY AGGRESSIVE, AWAITING MED FROM PHARMACY.
[2020-10-03] MEDS ORDERED: KETAMINE 100 MG/ML, 5ML IM STA (13:01)
--- NOTE | 2020-10-03 13:05 | NUR ---
Triage note edited to add accurate weight.
--- NOTE | 2020-10-03 14:30 | NUR ---
Per break RN: Pt became a flight risk, running around the unit, yelling, was undirectable, and restraints were reapplied after pt was ushered in to a different room. That gurney was moved in to room 2 where pt has remained in restraints. Pt remains connected to all monitors sinus tach on the monitor. Pt remains awake at this time, eyes closed intermittently. Pt in view of sitter. Pt continues to attempt to yell out, but now communications are whispers. Pt pulling at restraints.
--- NOTE | 2020-10-03 16:36 | NUR ---
Meghan, psych HEALTH INSURANCE ADJUSTER at bedside.
--- NOTE | 2020-10-03 18:15 | NUR ---
Pt provided with dinner.
--- NOTE | 2020-10-03 18:17 | NUR ---
Pt on phone.
--- NOTE | 2020-10-03 19:00 | NUR ---
Report to ANI Burroughs. To assume full care. Pt intermittently sleeping. In view of sitter.
--- NOTE | 2020-10-03 19:15 | NUR ---
PT RESTING IN ROOM. PT GIVEN SODA. PT HAS NO OTHER NEEDS. PT CALM AT THIS TIME. SITTER IN VIEW OF PT.
[2020-10-03] MEDS ORDERED: RISPERIDONE 2 MG TABLET ONE (19:52)
[2020-10-03] MEDS ORDERED: BENZTROPINE 1 MG TABLET ONE (19:52)
[2020-10-03] MEDS: BENZTROPINE 1 MG TABLET PO SCH (20:00)
--- NOTE | 2020-10-03 20:11 | NUR ---
PT MEDICATED FOR NIGHT. PT UP TO BATHROOM.
[2020-10-03] MEDS ORDERED: OLANZAPINE 10 MG INJ IM ONE (20:22)
[2020-10-03] MEDS: OLANZAPINE 10 MG INJ IM PRN (20:29)
--- NOTE | 2020-10-03 20:59 | NUR ---
LATE ENTRY: PT INCREASINGLY AGITATED. PT MEDICATED WITH ZYPREXA. . PT CONTINUES TO ACT OUT. ATTEMPTED TO DE ESCALATE. PT THEN MEDICATED WITH ATIVAN. PT BACK UP TO BATHROOM AND ESCORTED BACK TO BED. PT REQUESTING A HOT CHOCOLATE. TECH GETTING CHOCOLATE FOR PT.
[2020-10-03] MEDS ORDERED: RISPERIDONE 1 MG TABLET PO SCH (21:00)
--- NOTE | 2020-10-03 21:43 | NUR ---
PT ONCE ANGAIN COMING OUT OF ROOM. PT REDIRECTED TO ROOM
[2020-10-03] MEDS ORDERED: LORazepam 2 MG/ML, 1ML ONE (21:53)
--- NOTE | 2020-10-03 22:04 | NUR ---
PT REMEDICATED FOR ANXIETY AND AGITATION. PT BACK TO ROOM AND SITTING ON BED
[2020-10-03] MEDS ORDERED: LORazepam 2 MG/ML, 1ML IVPush ONE (22:30)
--- NOTE | 2020-10-03 23:00 | NUR ---
PT CALMER AND LAYING DOWN AFTER MEDICATION AND SANDWICH. SITTER IN VIEW OF PT
--- NOTE | 2020-10-04 00:47 | NUR ---
PT RESTING. EVEN RISE AND FALL OF CHEST OBSERVED. SITTER IN VIEW OF PT.
--- NOTE | 2020-10-04 02:00 | NUR ---
Break RN: patient went to bathroom with steady gait. no need at this time.
[2020-10-04] MEDS ORDERED: LORazepam 2 MG/ML, 1ML ONE ×2 (02:17→06:35)
--- NOTE | 2020-10-04 02:22 | NUR ---
PT BACK UP TO BATHROOM. PT GETTING MORE AGITATED. PT REMEDICATED. PT BACK IN BED AND GIVEN A WARM BLANKET
[2020-10-04] MEDS ORDERED: LORazepam 2 MG/ML, 1ML IVPush ONE ×2 (03:00→07:00)
--- NOTE | 2020-10-04 04:35 | NUR ---
PT RESTING. EVEN RISE AND FALL OF CHEST OBSERVED. SITTER IN VIEW OF PT.
--- NOTE | 2020-10-04 05:39 | NUR ---
PT UP TO BATHROOM AND NOW BACK IN BED. PT MORE REDIRECTIBLE THEN EARLIER. SITTER IN VIEW OF PT.
--- NOTE | 2020-10-04 05:50 | NUR ---
PT GIVEN SOME MILK AND SNACK. PT TOLD THAT BREAKFAST TRAY WILL BE ORDERED. PT HAS NO OTHER NEEDS AT THIS TIME. SITTER IN VIEW OF PT.
--- NOTE | 2020-10-04 06:56 | NUR ---
REPORT TO HELENE LAW
--- NOTE | 2020-10-04 07:16 | NUR ---
REC BS REPORT PT RESTING SITTER IN THE BOOTH WATCHING THE PT
[2020-10-04] MEDS ORDERED: BENZTROPINE 1 MG TABLET ONE (07:57)
[2020-10-04] MEDS ORDERED: RISPERIDONE 2 MG TABLET ONE (07:57)
[2020-10-04] MEDS: BENZTROPINE 1 MG TABLET PO SCH (08:08)
[2020-10-04] MEDS ORDERED: OLANZAPINE 10 MG INJ IM ONE (08:11)
--- NOTE | 2020-10-04 08:15 | NUR ---
MEAL GIVEN COOPERATIVE AT THIS TIME SHOWER PROVIDED PER PT REQ
[2020-10-04] MEDS: OLANZAPINE 10 MG INJ IM PRN (08:26)
[2020-10-04] MEDS ORDERED: RISPERIDONE 1 MG TABLET PO SCH (09:00)
[2020-10-04] MEDS ORDERED: LORazepam 1MG TABLET ONE (10:07)
[2020-10-04] MEDS ORDERED: LORazepam 1MG TABLET PO PRN (10:30)
[2020-10-04 10:34] VITALS: BP 121/86
[2020-10-04 10:46] LABS: HCG UR SG 1.014 (1.003-1.030)
--- NOTE | 2020-10-04 12:28 | NUR ---
TASK RN, PT PROVIDED MEAL TRAY.
--- NOTE | 2020-10-04 12:29 | NUR ---
I AM ASSUMING CARE OF THIS PT FROM HELENE (ANI) WHILE HE ENJOYS A LUNCH BREAK. SBAR WAS EXCHANGED AT THE BEDSIDE.
== END 2020-10-04 18:40 | disposition home or self-care (01) ==
LOC: ED 10-03 01:00 → EDIP 10-03 12:57
PROVIDERS: ADMIT Emergency Medicine; ATTEND Emergency Medicine
DX: F25.0 Schizoaffective disorder, bipolar type (principal); E66.9 Obesity, unspecified; F17.210 Nicotine dependence, cigarettes, uncomplicated; F15.159 Other stimulant abuse with stimulant-induced psychotic disorder, unspecified; Z32.01 Encounter for pregnancy test, result positive; Z78.1 Physical restraint status; Z91.19 Patient's noncompliance with other medical treatment and regimen; Z91.83 Wandering in diseases classified elsewhere; Z79.899 Other long term (current) drug therapy
CPT/HCPCS: 36415; 80053; 80299; 80307; 80320; 80329; 81025; 84702; 85025; 93005; 96372; 96374; 96376; 99291; G0378; J1200; J1630; J2060; J2250; J3486; Q0177; G0480

== ENCOUNTER 2020-10-05 06:38 | Emergency (ER) | payer MEDICAID ==
[~2020-10-05] VITALS: Ht 167.6 cm; Wt 88.0 kg
--- NOTE | 2020-10-05 06:40 | NUR ---
PATIENT EREN DANIELS WAS FOUND WITH NO PANTS, UNDERWEAR, AND IN TANK TOP RUNNING AROUND 4TH AND NISH. SHE IS . SHE IS ANXIOUS, AND TALKING NONSTOP ABOUT UNRELATED THINGS, AND KEEPS TAKING CLOTHES OFF.
[2020-10-05] MEDS ORDERED: LORazepam 1MG TABLET PO ONE (07:00)
[2020-10-05] MEDS ORDERED: OLANZAPINE 10 MG INJ IM ONE ×2 (07:00→07:06)
--- NOTE | 2020-10-05 07:04 | NUR ---
report from norberto orona. pt manic and pacing around room.
[2020-10-05] MEDS ORDERED: LORazepam 1MG TABLET ONE ×2 (07:06→15:14)
--- NOTE | 2020-10-05 07:27 | NUR ---
Task RN: Pt non stop jania garcia, word salad. Pt states things like "pick a color, it's a game, 1, 2, 3, 5, 7...teen, I have a son, I'm going to sing a song." Pt unable to hold still, extremely manic. Primary nurse now sitting outside of room after this RN able to be at bedside.
--- NOTE | 2020-10-05 07:38 | NUR ---
pt placed on legal. 4 point restraints being placed by security. pt not redirectable nor following directions at this time.
[2020-10-05] MEDS ORDERED: LORazepam 2 MG/ML, 1ML ONE ×5 (07:45→11:45)
[2020-10-05] MEDS ORDERED: LORazepam 2 MG/ML, 1ML IM PRN (08:00)
[2020-10-05] MEDS ORDERED: LORazepam 2 MG/ML, 1ML IM ONE ×3 (09:00→11:00)
--- NOTE | 2020-10-05 09:10 | NUR ---
restraints briefly removed pt walked to bathroom with steady gait with security. pt back to bed. restraints reapplied
--- NOTE | 2020-10-05 09:27 | NUR ---
SITTER AT BEDSIDE. PT SITTING UP IN BED RESTLESS.
--- NOTE | 2020-10-05 09:54 | NUR ---
pt medicated again per emar. pt still very manic and restless in bed. continuious pulse ox in place. vss
--- NOTE | 2020-10-05 10:14 | NUR ---
LIZ BARRETT TO BEDSIDE FOR EVALUATION. PT STILL MANIC AND RESTLESS IN BED. SPO2 97 ROOM AIR. SITTER AT BEDSIDE.
--- NOTE | 2020-10-05 11:29 | NUR ---
PT BRIEFLY TAKEN OFF RESTRAINTS, WALKED TO BATHROOM WITH SITTER AND SECURITY, ESCORTED BACK TO BED. PT GIVE SANDWICH AND MILK. RESTRAINTS REAPPLIED. PT MEDICATED PER EMAR. STILL RESTLESS. SITTER AND THIS RN TO BEDSIDE.
--- NOTE | 2020-10-05 12:01 | NUR ---
TASK RN NOTE: PT SITTING UP IN BED, MAEX4 INDEPENDENTLY. PT REMAINS IN RESTRAINTS. SITTER IS OUTSIDE OF ROOM FOR DIRECT OBSERVATION AND Q15 MIN SAFETY CHECKS. SIDE RAILS UP FOR PT SAFETY.
[2020-10-05 13:27] LABS: BASOPHILS % (AUTO) 1 % (0-1); EOSINOPHILS % (AUTO) 0 % (1-7); LYMPHOCYTES % (AUTO) 20 % (22-44); MEAN CORPUSCULAR HEMOGLOBIN 28.5 pg (27.0-34.8); MEAN CORPUSCULAR HGB CONC 33.2 g/dL (32.4-35.8); MEAN PLATELET VOLUME 8.3 fL (7.4-10.4); MONOCYTES % (AUTO) 8 % (2-9); NEUTROPHILS % (AUTO) 71 % (42-75); PLATELET COUNT 304 x10^3/uL (130-400); RED BLOOD COUNT 3.61 x10^6/uL (3.82-5.3); RED CELL DISTRIBUTION WIDTH 14.4 % (9.6-15.2)
[2020-10-05 13:29] LABS: MD NO
[2020-10-05 13:41] LABS: ALBUMIN 2.9 g/dL (3.4-5.0); ANION GAP 8 mmol/L (5-15); CALCIUM 8.4 mg/dL (8.5-10.1); CHLORIDE 110 mmol/L (98-107)
--- NOTE | 2020-10-05 13:44 | NUR ---
PT DROWSY AND DOZING OFF. RESTRAINTS REMOVED. VSS. FEN.
[2020-10-05 13:59] LABS: SALICYLATE LEVEL < 1.7 mg/dL (2.8-20.0)
[2020-10-05 14:01] LABS: ALANINE AMINOTRANSFERASE 29 U/L (12-78); ALKALINE PHOSPHATASE 57 U/L (45-117); BILIRUBIN,TOTAL 0.4 mg/dL (0.2-1.0); TOTAL PROTEIN 7.3 g/dL (6.4-8.2)
--- NOTE | 2020-10-05 14:43 | NUR ---
PT ASLEEP WITH EVEN AND UNLABORED RESPIRATIONS. [place]. ZITA.
[2020-10-05] MEDS ORDERED: LORazepam 1MG TABLET PO PRN (15:00)
[2020-10-05] MEDS ORDERED: RISPERIDONE 1 MG TABLET PO ONE (15:00)
[2020-10-05] MEDS ORDERED: RISPERIDONE 2 MG TABLET ONE (15:14)
--- NOTE | 2020-10-05 15:22 | NUR ---
PT AWAKE. STAYING IN ROOM. PT RESTLESS. MEDICATED PER EMAR.
--- NOTE | 2020-10-05 15:31 | NUR ---
MIKE BARRETT AT BEDSIDE TO DISCUSS POC WITH PTSawyer NICKERSON AT BEDSIDE.
--- NOTE | 2020-10-05 16:17 | NUR ---
PT PLACED ON 2 POINT RESTRAINTS AFTER RUNNING THROUGH BOOTH WAY WITH NO CLOTHES ON. PT NOT REDIRECTIABLE AND ATTEMPTING TO GO INTO ANOTHER PTS ROOM. SITTER AT BEDSIDE. AWARE.
--- NOTE | 2020-10-05 16:55 | NUR ---
PT ASLEEP. RESPIRATIONS EVEN AND UNLABORED. REPORT GIVEN TO TERESA LAW.
--- NOTE | 2020-10-05 16:58 | NUR ---
ASSUMED PT CARE FROM ANI LUND. PT RESTING IN [facility], MONITORING IN PLACE, ZITA AT THIS TIME, EUGENIO. MILY CALLED AT THIS TIME TO REMOVE RESTRAINTS FROM PT. PT RESTING IN [facility] WITH EYES CLOSED, COOPERATIVE AND FOLLOWING COMMANDS AT THIS TIME.
--- NOTE | 2020-10-05 17:13 | NUR ---
PT UNABLE TO URINATE AT THIS TIME.
--- NOTE | 2020-10-05 18:35 | NUR ---
BREAK RN: PT SLEEPING IN NAD, EVEN AND UNLABORED RESPIRATIONS NOTED. SITTER OUTSIDE OF ROOM FOR SAFETY MONITORING.
--- NOTE | 2020-10-05 19:09 | NUR ---
REPORT GIVEN TO ANI STUART.
--- NOTE | 2020-10-05 19:47 | NUR ---
REPORT RECEIVED FROM PERFECTO LAW.
--- NOTE | 2020-10-05 19:47 | NUR ---
PT STATES SHE BELIEVES SHE IS BEING FOLLOWED. PT REQUESTED "MORE CHOCHOLATE MILK "
[2020-10-05 20:13] VITALS: BP 125/63
--- NOTE | 2020-10-05 20:15 | NUR ---
PT RESTING IN BED, BILATERAL CHEST RISE AND FALL. BED RAILS UP VSS. SITTER OUT SIDE ROOM.
[2020-10-05] MEDS ORDERED: OLANZAPINE 10 MG INJ IM SCH (21:00)
[2020-10-05] MEDS ORDERED: RISPERIDONE 1 MG TABLET PO SCH (21:00)
--- NOTE | 2020-10-05 21:45 | NUR ---
PT RESTING IN BED BILAERAL CHEST RISE AND FALL. RAILS ON BED UP SITTER OUTSIDE ROOM VSS.
--- NOTE | 2020-10-05 23:03 | NUR ---
PT IN BED RESTING BILATERAL CHEST RISE AND FALL. SITTER OUTSIDE OF ROOM. BED RAILS UP.
--- NOTE | 2020-10-06 01:06 | NUR ---
PT RESTING IN BED. BILATERAL CHEST MOVEMENT UP AND DOWN. SITTER OUTSIDE ROOM. BED RAILS UP.
--- NOTE | 2020-10-06 02:16 | NUR ---
PT RESTING IN BED WITH BILATERAL RISE AND FALL OF CHEST. NADN. BED RAILS UP. SITTER OUTSIDE OF ROOM.
--- NOTE | 2020-10-06 02:58 | NUR ---
PT UP TO GET URINE SPECIMEN. PT STATED SHE TRIED BUT WAS UNABLE. PT AMBULATED TO RESTROOM SLOWLY AND WITH GUIDANCE. PT STATES SHE IS VERY TIRED. ASKED FOR TWO BOWLS OF CEREAL AND A PB&J SANDWICH.
--- NOTE | 2020-10-06 04:05 | NUR ---
Assist RN: patient up to bathroom then back to room. Patient sitting on edge of bed singing. Sitter outside.
--- NOTE | 2020-10-06 04:21 | NUR ---
PT FED AND AMBULATED TO RESTROOM. PT RESTING IN BED RESTING. NADN. PT BED RAILS UP AND CALL REMOTE WITHIN REACH. SITTER OUTSIDE OF ROOM.
[2020-10-06 04:27] LABS: AMPHETAMINE SCREEN, URINE Positive (Negative); BARBITURATE SCREEN, URINE Negative (Negative); BENZODIAZEPINE SCREEN, URINE Negative (Negative); CANNABINOID SCREEN, URINE Negative (Negative); COCAINE SCREEN, URINE Negative (Negative); METHADONE SCREEN, URINE Negative (Negative); OPIATE SCREEN, URINE Negative (Negative)
--- NOTE | 2020-10-06 04:37 | NUR ---
PT WANTS TO KNOW WHY SHE IS AN A HOLD. EXPALAINED TO PT BECASUE OF THE EVENTS THAT HAPPENEED YESTERDAY THAT SHE NEEDS TO BE EVELUATED BEFORE THIS MAY HAPPEN. PT STATES SHE WANT A SHOT OF HALDOL. PT STATES WANTS TO TAKE A WALK AND GET OUT OF HER ROOM AND A POSIBLE SHOWER. THAT SHE IS ON HER PERIOD AND THAT SHE IS BLEDDING AND THAT IT IS "CLOTTY".
[2020-10-06] MEDS ORDERED: HALOPERIDOL 5 MG/ML ONE (04:50)
--- NOTE | 2020-10-06 04:57 | NUR ---
SPOKE WITH ERP SAID IT WAS OK TO GIVE 5 OF HALDOL IM.
--- NOTE | 2020-10-06 05:27 | NUR ---
PT STATES THAT SHE "WASN'T SUCIDAL THAT SHE HAS SCHITOPHRENIA AND THAT SHE WAS ON HER PERIOD YESDERDAY THAT IS WHY HER PANTS WERE OFF" THAT SHE WAS NOT TAKING DRUGS. SHE STATES THE SHE WAS NOT WANTING TO HARM HERSELF.
[2020-10-06] MEDS ORDERED: HALOPERIDOL 5 MG/ML IM ONE (05:30)
--- NOTE | 2020-10-06 06:44 | NUR ---
Patientgiven discharge instructions and they have confirmed that they understand the instructions. Patient ambulatory with steady gait. No question at time of discharge.
== END 2020-10-06 06:46 | disposition home or self-care (01) ==
LOC: ED 07:21
DX: G92 Toxic encephalopathy (principal); F19.159 Other psychoactive substance abuse with psychoactive substance-induced psychotic disorder, unspecified; R00.0 Tachycardia, unspecified
CPT/HCPCS: 36415; 80053; 80299; 80307; 80320; 80329; 84702; 85025; 96372; 99285; J1630; J2060; G0480